=== PATIENT | male | born 1955 | race Caucasian/White ===

== ENCOUNTER 2018-08-29 11:20 | Inpatient (IN) | payer MEDICARE, OTHER ==
[~2018-08-29] VITALS: Ht 172.7 cm; Wt 82.4 kg
[~2018-08-29 11:20] MED LIST: FLUT1DIS4 INH; HYDR-4383 PO; LISI-222 PO; PANT-47 PO; THEO200T22 PO; ZOC40T PO
[2018-08-29] MEDS ORDERED: normal saline 1000ml 1,000 ML IV ONE (11:25)
[2018-08-29 11:42] LABS: HEMATOCRIT 43.6 % (42.0-52.0); HEMOGLOBIN 15.6 g/dl (14.0-17.9); MEAN CORPUSCULAR HEMOGLOBIN 34.4 PG (27.0-31.0); MEAN CORPUSCULAR HGB CONC 35.9 % (33.0-36.5); MEAN PLATELET VOLUME 7.3 FL (7.4-10.4); PLATELET COUNT 289 X10'3 (140-440); RED BLOOD COUNT 4.54 X10'6 (4.70-6.10); RED CELL DISTRIBUTION WIDTH 12.3 % (11.5-14.5)
[2018-08-29] MEDS ORDERED: ALBU18HF2 INH (11:52)
[2018-08-29 11:53] LABS: ALANINE AMINOTRANSFERASE 61 U/L (12-78); ALBUMIN 4.2 G/DL (3.4-5.0); ALBUMIN/GLOBULIN RATIO 1.1 (1.1-1.5); ALKALINE PHOSPHATASE 63 IU/L (46-116); ANION GAP 12 (8-16); ASPARTATE AMINO TRANSFERASE 106 U/L (10-37); BILIRUBIN,TOTAL 1.9 MG/DL (0.1-1.0); BLOOD UREA NITROGEN 15 MG/DL (7-18); BUN/CREATININE RATIO 16.9 (5.4-32.0); CALCIUM 9.2 MG/DL (8.5-10.1); CHLORIDE 63 MMOL/L (99-107); CREATININE 0.89 MG/DL (0.60-1.10); ETHANOL 0.041 GM/DL (0.0-0.010); GLUCOSE 149 MG/DL (70-104); MAGNESIUM 2.3 MG/DL (1.5-2.4); SODIUM 104 MMOL/L (135-145); TOTAL CARBON DIOXIDE 28.9 MMOL/L (24-32); TOTAL PROTEIN 7.9 G/DL (6.4-8.2); eGFR 87 ML/MIN
[2018-08-29] MEDS ORDERED: LOVA20TA2 PO (11:53)
[2018-08-29] MEDS ORDERED: CHLO25TA2 PO (11:53)
[2018-08-29] MEDS ORDERED: LISI-600 PO (11:53)
[2018-08-29 11:54] LABS: PARTIAL THROMBOPLASTIN TIME 26 SECONDS (22-32); PROTHROMBIN TIME 9.8 SECONDS (9.0-12.0)
[2018-08-29] MEDS ORDERED: SIMV40TA PO (11:54)
[2018-08-29] MEDS ORDERED: TIMO5DRO32 (11:55)
[2018-08-29] MEDS ORDERED: TRAM50TA2 PO (11:55)
[2018-08-29] MEDS ORDERED: potassium 10mEq/100ml NS w/LIDOcaine (10mg/bag) IV ONE (12:00)
[2018-08-29 12:15] LABS: TOTAL CELLS COUNTED 100
[2018-08-29 12:16] LABS: PLATELET ESTIMATE NORMAL
[2018-08-29] MEDS ORDERED: LORazepam 2 mg/ml vial IV ONE (12:20)
[2018-08-29] MEDS ORDERED: normal saline 1000ML IV soln IVB ONE (12:30)
[2018-08-29] MEDS ORDERED: iohexol 300mg/ml 100ml inj. ONE (13:09)
[2018-08-29 14:07] LABS: CLARITY,URINE CLEAR (Clear); COLOR,URINE YELLOW (Yellow); GLUCOSE, URINE NEGATIVE (Neg); KETONES,URINE 40 mg/dl (Neg); LEUKOCYTE ESTERASE ,URINE NEGATIVE (Neg); NITRITES, URINE NEGATIVE (Neg); OCCULT BLOOD,URINE TRACE-INTACT (Neg); PH,URINE 6.5 (4.8-8.0); UROBILINOGEN,URINE 0.2 E.U/dL (0.2-1.0)
[2018-08-29 14:14] LABS: PROTEIN,URINE TRACE mg/dl (Neg)
[2018-08-29 14:18] LABS: UA COLLECTION TYPE STRAIGHT CATH
[2018-08-29 14:23] LABS: URINE AMPHETAMINE SCREEN NEGATIVE (Neg); URINE BARBITUATE SCREEN NEGATIVE (Neg); URINE BENZODIAZEPINES SCREEN NEGATIVE (Neg); URINE CANNABINOID SCREEN NEGATIVE (Neg); URINE COCAINE SCREEN NEGATIVE (Neg); URINE METHADONE SCREEN NEGATIVE (Neg); URINE OPIATE SCREEN NEGATIVE (Neg); URINE PHENCYCLIDINE SCREEN NEGATIVE (Neg)
[2018-08-29 14:28] LABS: SQUAMOUS EPITHELIAL CELL,UR FEW /LPF (FEW)
[2018-08-29 14:29] LABS: BACTERIA,URINE FEW /HPF (Neg); FINE GRANULAR CAST 0-3 /LPF (NEGATIVE); RBC,URINE 0-2 /HPF (0-2)
[2018-08-29 14:30] LABS: WBC,URINE 0-4 /HPF (0-4)
[2018-08-29 15:14] LABS: LIPASE 517 U/L (73-393)
[2018-08-29] MEDS: normal saline 1000ml 1,000 ML IV SCH (15:32)
[2018-08-29] MEDS ORDERED: morphine 2 MG/ML inj. syringe IV PRN (15:35)
[2018-08-29] MEDS ORDERED: potassium Cl 40MEQ/NS 500ml 500 ML IV PRN (15:35)
[2018-08-29] MEDS ORDERED: ondansetron/PF 4mg/2ml inj IV PRN (15:35)
[2018-08-29] MEDS ORDERED: acetaminophen 325mg tablet PO PRN ×2 (15:35)
[2018-08-29] MEDS ORDERED: morphine 4 MG/ML inj SYRINge IV PRN (15:35)
[2018-08-29] MEDS ORDERED: TIMO5DRO4 EACHEYE (15:57)
[2018-08-29] MEDS ORDERED: chlordiazePOXIDE 25mg capsule PO PRN (17:30)
[2018-08-29 18:49] LABS: ALBUMIN 3.7 G/DL (3.4-5.0); ANION GAP 10 (8-16); BLOOD UREA NITROGEN 14 MG/DL (7-18); CALCIUM 8.5 MG/DL (8.5-10.1); CHLORIDE 69 MMOL/L (99-107); CREATININE 0.61 MG/DL (0.60-1.10); GLUCOSE 114 MG/DL (70-104); TOTAL CARBON DIOXIDE 27.4 MMOL/L (24-32); eGFR > 90 ML/MIN
[2018-08-29 18:52] LABS: SODIUM 106 MMOL/L (135-145)
[2018-08-29 19:00] VITALS: BP 99/63
[2018-08-29 20:00] VITALS: BP 98/61
[2018-08-29] MEDS: potassium Cl 20 mEq SR tablet PO PRN (20:17)
[2018-08-29] MEDS: folic acid 1mg tablet PO SCH (20:38)
[2018-08-29] MEDS: docusate sod 100mg capsule PO SCH (20:38)
[2018-08-29] MEDS: thiamine 100mg tablet PO SCH (20:39)
[2018-08-29] MEDS: multivitamins, therapeutics tablet PO SCH (20:39)
[2018-08-29] MEDS: heparin, porcine 5000 units/ml vial SQ SCH (20:39)
[2018-08-29 21:00] VITALS: BP 115/68
[2018-08-29 22:00] VITALS: BP 113/48
[2018-08-29 23:00] VITALS: BP 122/68
[2018-08-29 23:37] LABS: ALBUMIN 3.7 G/DL (3.4-5.0); ANION GAP 9 (8-16); CALCIUM 8.8 MG/DL (8.5-10.1); CHLORIDE 71 MMOL/L (99-107); CREATININE 0.66 MG/DL (0.60-1.10); GLUCOSE 112 MG/DL (70-104); TOTAL CARBON DIOXIDE 28.5 MMOL/L (24-32); eGFR > 90 ML/MIN
[2018-08-29 23:46] LABS: BLOOD UREA NITROGEN 12 MG/DL (7-18); BUN/CREATININE RATIO 18.2 (5.4-32.0)
[2018-08-29 23:53] LABS: SODIUM 108 MMOL/L (135-145)
[2018-08-29 23:54] LABS: POTASSIUM 2.8 MMOL/L (3.5-5.1)
[2018-08-30] VITALS (24 sets, daily range): BP systolic 82–127; BP diastolic 57–76
[2018-08-30] MEDS: potassium Cl 40MEQ/NS 500ml 500 ML IV PRN ×2 (01:08→05:32)
[2018-08-30] MEDS: normal saline 1000ml 1,000 ML IV SCH (04:52)
[2018-08-30 05:39] LABS: BASOPHILS % (AUTO) 0.1 % (0-1); EOSINOPHILS # (AUTO) 0.2 X10'3 (0-0.9); EOSINOPHILS % (AUTO) 1.3 % (0-6); HEMATOCRIT 42.1 % (42.0-52.0); LYMPHOCYTES # (AUTO) 1.2 X10'3 (1.1-4.8); LYMPHOCYTES % (AUTO) 8.1 % (21-51); MEAN CORPUSCULAR HEMOGLOBIN 34.3 PG (27.0-31.0); MEAN CORPUSCULAR HGB CONC 35.6 % (33.0-36.5); MEAN CORPUSCULAR VOLUME 96.2 FL (78-98); MEAN PLATELET VOLUME 7.5 FL (7.4-10.4); MONOCYTES # (AUTO) 1.7 X10'3 (0-0.9); MONOCYTES % (AUTO) 11.6 % (2-12); NEUTROPHILS # (AUTO) 11.7 X10'3 (1.8-7.7); NEUTROPHILS % (AUTO) 78.9 % (42-75); PLATELET COUNT 230 X10'3 (140-440); RED BLOOD COUNT 4.37 X10'6 (4.70-6.10); WHITE BLOOD COUNT 14.8 X10'3 (4.5-11.0)
[2018-08-30 06:13] LABS: ALANINE AMINOTRANSFERASE 93 U/L (12-78); ALBUMIN 3.5 G/DL (3.4-5.0); ALBUMIN/GLOBULIN RATIO 1.1 (1.1-1.5); ALKALINE PHOSPHATASE 48 IU/L (46-116); ANION GAP 9 (8-16); ASPARTATE AMINO TRANSFERASE 117 U/L (10-37); BILIRUBIN,TOTAL 1.3 MG/DL (0.1-1.0); BLOOD UREA NITROGEN 9 MG/DL (7-18); CALCIUM 8.6 MG/DL (8.5-10.1); CHLORIDE 76 MMOL/L (99-107); GLUCOSE 107 MG/DL (70-104); MAGNESIUM 2.3 MG/DL (1.5-2.4); PHOSPHORUS 1.9 MG/DL (2.3-4.5); TOTAL CARBON DIOXIDE 27.7 MMOL/L (24-32); TOTAL PROTEIN 6.7 G/DL (6.4-8.2); eGFR > 90 ML/MIN
[2018-08-30 06:38] LABS: POTASSIUM 2.9 MMOL/L (3.5-5.1)
[2018-08-30 06:39] LABS: SODIUM 113 MMOL/L (135-145)
[2018-08-30] MEDS: sodium chloride 0.45% 1,000 ML IV SCH ×2 (07:35→20:50)
[2018-08-30] MEDS: docusate sod 100mg capsule PO SCH ×2 (08:00→20:00)
[2018-08-30] MEDS: heparin, porcine 5000 units/ml vial SQ SCH ×2 (09:09→20:32)
[2018-08-30] MEDS: multivitamins, therapeutics tablet PO SCH (09:09)
[2018-08-30] MEDS: potassium Cl 20 mEq SR tablet PO PRN (09:10)
[2018-08-30] MEDS: folic acid 1mg tablet PO SCH (09:10)
[2018-08-30] MEDS: thiamine 100mg tablet PO SCH (09:10)
[2018-08-30 10:42] LABS: ALBUMIN 3.5 G/DL (3.4-5.0); ANION GAP 6 (8-16); BLOOD UREA NITROGEN 8 MG/DL (7-18); BUN/CREATININE RATIO 13.1 (5.4-32.0); CALCIUM 8.5 MG/DL (8.5-10.1); CHLORIDE 81 MMOL/L (99-107); CREATININE 0.61 MG/DL (0.60-1.10); GLUCOSE 133 MG/DL (70-104); TOTAL CARBON DIOXIDE 28.7 MMOL/L (24-32); eGFR > 90 ML/MIN
[2018-08-30 10:49] LABS: SODIUM 116 MMOL/L (135-145)
[2018-08-30 10:50] LABS: POTASSIUM 3.6 MMOL/L (3.5-5.1)
[2018-08-30 11:00] LABS: OSMOLALITY UA 232 MOSM/K (50-1400)
[2018-08-30 11:04] LABS: SODIUM,URINE RANDOM 50 MEQ/L
[2018-08-30 16:12] LABS: ALBUMIN 3.5 G/DL (3.4-5.0); ANION GAP 6 (8-16); BLOOD UREA NITROGEN 7 MG/DL (7-18); BUN/CREATININE RATIO 10.4 (5.4-32.0); CALCIUM 8.8 MG/DL (8.5-10.1); CHLORIDE 83 MMOL/L (99-107); CREATININE 0.67 MG/DL (0.60-1.10); GLUCOSE 112 MG/DL (70-104); TOTAL CARBON DIOXIDE 29.7 MMOL/L (24-32); eGFR > 90 ML/MIN
[2018-08-30 16:18] LABS: POTASSIUM 3.5 MMOL/L (3.5-5.1)
[2018-08-30 16:21] LABS: SODIUM 119 MMOL/L (135-145)
[2018-08-30] MEDS: diatr meglu/diatrizoate 30ml oral sol.-(3 dose) bottle PO SCH (20:33)
[2018-08-30 23:20] LABS: ALBUMIN 3.5 G/DL (3.4-5.0); ANION GAP 9 (8-16); BLOOD UREA NITROGEN 11 MG/DL (7-18); BUN/CREATININE RATIO 16.2 (5.4-32.0); CALCIUM 8.7 MG/DL (8.5-10.1); CHLORIDE 83 MMOL/L (99-107); CREATININE 0.68 MG/DL (0.60-1.10); GLUCOSE 121 MG/DL (70-104); TOTAL CARBON DIOXIDE 27.5 MMOL/L (24-32); eGFR > 90 ML/MIN
[2018-08-30 23:30] LABS: POTASSIUM 3.1 MMOL/L (3.5-5.1); SODIUM 119 MMOL/L (135-145)
[2018-08-31] VITALS (13 sets, daily range): BP systolic 117–155; BP diastolic 68–96
[2018-08-31] MEDS: potassium Cl 20 mEq SR tablet PO PRN ×3 (00:37→09:13)
[2018-08-31 04:37] LABS: BASOPHILS % (AUTO) 0.3 % (0-1); EOSINOPHILS # (AUTO) 0.1 X10'3 (0-0.9); EOSINOPHILS % (AUTO) 0.8 % (0-6); HEMATOCRIT 42.4 % (42.0-52.0); HEMOGLOBIN 14.8 g/dl (14.0-17.9); LYMPHOCYTES # (AUTO) 1.7 X10'3 (1.1-4.8); LYMPHOCYTES % (AUTO) 11.6 % (21-51); MEAN CORPUSCULAR HEMOGLOBIN 34.3 PG (27.0-31.0); MEAN CORPUSCULAR HGB CONC 34.9 % (33.0-36.5); MEAN CORPUSCULAR VOLUME 98.2 FL (78-98); MEAN PLATELET VOLUME 7.6 FL (7.4-10.4); MONOCYTES # (AUTO) 1.9 X10'3 (0-0.9); MONOCYTES % (AUTO) 12.8 % (2-12); NEUTROPHILS # (AUTO) 10.8 X10'3 (1.8-7.7); NEUTROPHILS % (AUTO) 74.5 % (42-75); PLATELET COUNT 232 X10'3 (140-440); RED BLOOD COUNT 4.32 X10'6 (4.70-6.10); RED CELL DISTRIBUTION WIDTH 12.8 % (11.5-14.5); WHITE BLOOD COUNT 14.5 X10'3 (4.5-11.0)
[2018-08-31 04:51] LABS: ALANINE AMINOTRANSFERASE 83 U/L (12-78); ALBUMIN 3.5 G/DL (3.4-5.0); ALBUMIN/GLOBULIN RATIO 1.1 (1.1-1.5); ALKALINE PHOSPHATASE 56 IU/L (46-116); ANION GAP 8 (8-16); ASPARTATE AMINO TRANSFERASE 67 U/L (10-37); BILIRUBIN,TOTAL 0.7 MG/DL (0.1-1.0); BLOOD UREA NITROGEN 9 MG/DL (7-18); BUN/CREATININE RATIO 14.3 (5.4-32.0); CALCIUM 8.7 MG/DL (8.5-10.1); CHLORIDE 84 MMOL/L (99-107); CREATININE 0.63 MG/DL (0.60-1.10); GLUCOSE 111 MG/DL (70-104); MAGNESIUM 2.4 MG/DL (1.5-2.4); PHOSPHORUS 1.6 MG/DL (2.3-4.5); TOTAL CARBON DIOXIDE 28.3 MMOL/L (24-32); TOTAL PROTEIN 6.8 G/DL (6.4-8.2); eGFR > 90 ML/MIN
[2018-08-31 04:52] LABS: POTASSIUM 2.9 MMOL/L (3.5-5.1); SODIUM 120 MMOL/L (135-145)
[2018-08-31] MEDS: diatr meglu/diatrizoate 30ml oral sol.-(3 dose) bottle PO SCH ×2 (07:31→10:15)
[2018-08-31] MEDS ORDERED: iohexol 300mg/ml 100ml inj. ONE (11:04)
[2018-08-31] MEDS: thiamine 100mg tablet PO SCH (11:59)
[2018-08-31] MEDS: folic acid 1mg tablet PO SCH (12:00)
[2018-08-31] MEDS: multivitamins, therapeutics tablet PO SCH (12:00)
[2018-08-31] MEDS: docusate sod 100mg capsule PO SCH ×2 (12:00→19:51)
[2018-08-31] MEDS: heparin, porcine 5000 units/ml vial SQ SCH ×2 (12:02→19:52)
[2018-08-31 16:14] LABS: ALBUMIN 3.5 G/DL (3.4-5.0); ANION GAP 6 (8-16); BLOOD UREA NITROGEN 9 MG/DL (7-18); BUN/CREATININE RATIO 9.8 (5.4-32.0); CALCIUM 9.1 MG/DL (8.5-10.1); CHLORIDE 87 MMOL/L (99-107); CREATININE 0.92 MG/DL (0.60-1.10); GLUCOSE 135 MG/DL (70-104); POTASSIUM 3.7 MMOL/L (3.5-5.1); SODIUM 122 MMOL/L (135-145); TOTAL CARBON DIOXIDE 28.8 MMOL/L (24-32); eGFR 84 ML/MIN
[2018-08-31 22:14] LABS: ALBUMIN 3.5 G/DL (3.4-5.0); ANION GAP 9 (8-16); BLOOD UREA NITROGEN 14 MG/DL (7-18); BUN/CREATININE RATIO 19.7 (5.4-32.0); CALCIUM 9.2 MG/DL (8.5-10.1); CHLORIDE 87 MMOL/L (99-107); CREATININE 0.71 MG/DL (0.60-1.10); GLUCOSE 127 MG/DL (70-104); POTASSIUM 3.4 MMOL/L (3.5-5.1); SODIUM 123 MMOL/L (135-145); TOTAL CARBON DIOXIDE 27.5 MMOL/L (24-32); eGFR > 90 ML/MIN
[2018-09-01] MEDS: potassium Cl 20 mEq SR tablet PO PRN (00:46)
[2018-09-01 03:00] VITALS: BP 153/93
[2018-09-01 06:14] LABS: ALANINE AMINOTRANSFERASE 76 U/L (12-78); ALBUMIN 3.6 G/DL (3.4-5.0); ALKALINE PHOSPHATASE 52 IU/L (46-116); ANION GAP 6 (8-16); ASPARTATE AMINO TRANSFERASE 46 U/L (10-37); BILIRUBIN,TOTAL 0.6 MG/DL (0.1-1.0); BLOOD UREA NITROGEN 15 MG/DL (7-18); BUN/CREATININE RATIO 19.2 (5.4-32.0); CALCIUM 9.3 MG/DL (8.5-10.1); CHLORIDE 89 MMOL/L (99-107); CREATININE 0.78 MG/DL (0.60-1.10); GLUCOSE 124 MG/DL (70-104); MAGNESIUM 2.3 MG/DL (1.5-2.4); PHOSPHORUS 2.1 MG/DL (2.3-4.5); POTASSIUM 3.7 MMOL/L (3.5-5.1); SODIUM 124 MMOL/L (135-145); TOTAL CARBON DIOXIDE 28.9 MMOL/L (24-32); TOTAL PROTEIN 7.1 G/DL (6.4-8.2); eGFR > 90 ML/MIN
[2018-09-01 06:19] LABS: BASOPHILS % (AUTO) 0.3 % (0-1); EOSINOPHILS # (AUTO) 0.2 X10'3 (0-0.9); EOSINOPHILS % (AUTO) 1.7 % (0-6); HEMATOCRIT 44.8 % (42.0-52.0); HEMOGLOBIN 15.7 g/dl (14.0-17.9); LYMPHOCYTES # (AUTO) 2.3 X10'3 (1.1-4.8); LYMPHOCYTES % (AUTO) 16.6 % (21-51); MEAN CORPUSCULAR HEMOGLOBIN 34.2 PG (27.0-31.0); MEAN CORPUSCULAR HGB CONC 34.9 % (33.0-36.5); MEAN PLATELET VOLUME 7.2 FL (7.4-10.4); MONOCYTES # (AUTO) 1.8 X10'3 (0-0.9); MONOCYTES % (AUTO) 12.6 % (2-12); NEUTROPHILS # (AUTO) 9.7 X10'3 (1.8-7.7); NEUTROPHILS % (AUTO) 68.8 % (42-75); PLATELET COUNT 255 X10'3 (140-440); RED BLOOD COUNT 4.57 X10'6 (4.70-6.10); RED CELL DISTRIBUTION WIDTH 13.1 % (11.5-14.5); WHITE BLOOD COUNT 14.1 X10'3 (4.5-11.0)
[2018-09-01 06:46] VITALS: BP 137/89
[2018-09-01] MEDS: docusate sod 100mg capsule PO SCH ×2 (07:10→19:05)
[2018-09-01] MEDS: folic acid 1mg tablet PO SCH (07:10)
[2018-09-01] MEDS: thiamine 100mg tablet PO SCH (07:10)
[2018-09-01] MEDS: multivitamins, therapeutics tablet PO SCH (07:10)
[2018-09-01] MEDS: heparin, porcine 5000 units/ml vial SQ SCH ×2 (07:11→19:05)
[2018-09-01 10:34] LABS: ALBUMIN 3.5 G/DL (3.4-5.0); ANION GAP 9 (8-16); BLOOD UREA NITROGEN 16 MG/DL (7-18); BUN/CREATININE RATIO 21.9 (5.4-32.0); CALCIUM 9.2 MG/DL (8.5-10.1); CHLORIDE 88 MMOL/L (99-107); CREATININE 0.73 MG/DL (0.60-1.10); GLUCOSE 154 MG/DL (70-104); POTASSIUM 3.5 MMOL/L (3.5-5.1); SODIUM 124 MMOL/L (135-145); TOTAL CARBON DIOXIDE 27.4 MMOL/L (24-32); eGFR > 90 ML/MIN
[2018-09-01 11:33] VITALS: BP 113/73
[2018-09-01 15:00] VITALS: BP 132/78
[2018-09-01 16:42] LABS: ALBUMIN 3.8 G/DL (3.4-5.0); ANION GAP 5 (8-16); BLOOD UREA NITROGEN 19 MG/DL (7-18); BUN/CREATININE RATIO 23.5 (5.4-32.0); CALCIUM 9.3 MG/DL (8.5-10.1); CHLORIDE 89 MMOL/L (99-107); CREATININE 0.81 MG/DL (0.60-1.10); GLUCOSE 131 MG/DL (70-104); POTASSIUM 3.4 MMOL/L (3.5-5.1); SODIUM 125 MMOL/L (135-145); TOTAL CARBON DIOXIDE 31.2 MMOL/L (24-32); eGFR > 90 ML/MIN
[2018-09-01 18:30] VITALS: BP 138/74
[2018-09-01 22:30] VITALS: BP 140/80
[2018-09-02 02:30] VITALS: BP 124/77
[2018-09-02 06:00] VITALS: BP 134/92
[2018-09-02 06:30] LABS: BASOPHILS # (AUTO) 0.1 X10'3 (0-0.2); BASOPHILS % (AUTO) 0.6 % (0-1); EOSINOPHILS # (AUTO) 0.4 X10'3 (0-0.9); EOSINOPHILS % (AUTO) 3.2 % (0-6); HEMATOCRIT 41.9 % (42.0-52.0); HEMOGLOBIN 14.4 g/dl (14.0-17.9); LYMPHOCYTES % (AUTO) 16.1 % (21-51); MEAN CORPUSCULAR HEMOGLOBIN 33.7 PG (27.0-31.0); MEAN CORPUSCULAR HGB CONC 34.4 % (33.0-36.5); MEAN CORPUSCULAR VOLUME 97.9 FL (78-98); MEAN PLATELET VOLUME 7.3 FL (7.4-10.4); MONOCYTES # (AUTO) 1.3 X10'3 (0-0.9); MONOCYTES % (AUTO) 10.5 % (2-12); NEUTROPHILS # (AUTO) 8.5 X10'3 (1.8-7.7); NEUTROPHILS % (AUTO) 69.6 % (42-75); PLATELET COUNT 282 X10'3 (140-440); RED BLOOD COUNT 4.28 X10'6 (4.70-6.10); RED CELL DISTRIBUTION WIDTH 13.4 % (11.5-14.5); WHITE BLOOD COUNT 12.2 X10'3 (4.5-11.0)
[2018-09-02 06:42] LABS: ALANINE AMINOTRANSFERASE 59 U/L (12-78); ALBUMIN 3.3 G/DL (3.4-5.0); ALKALINE PHOSPHATASE 49 IU/L (46-116); ANION GAP 7 (8-16); ASPARTATE AMINO TRANSFERASE 32 U/L (10-37); BILIRUBIN,TOTAL 0.5 MG/DL (0.1-1.0); BLOOD UREA NITROGEN 18 MG/DL (7-18); BUN/CREATININE RATIO 27.3 (5.4-32.0); CALCIUM 8.9 MG/DL (8.5-10.1); CHLORIDE 91 MMOL/L (99-107); CREATININE 0.66 MG/DL (0.60-1.10); GLUCOSE 121 MG/DL (70-104); MAGNESIUM 2.2 MG/DL (1.5-2.4); PHOSPHORUS 2.7 MG/DL (2.3-4.5); POTASSIUM 3.5 MMOL/L (3.5-5.1); SODIUM 126 MMOL/L (135-145); TOTAL CARBON DIOXIDE 28.5 MMOL/L (24-32); TOTAL PROTEIN 6.7 G/DL (6.4-8.2); eGFR > 90 ML/MIN
[2018-09-02] MEDS: docusate sod 100mg capsule PO SCH ×2 (07:43→20:03)
[2018-09-02] MEDS: multivitamins, therapeutics tablet PO SCH (07:43)
[2018-09-02] MEDS: folic acid 1mg tablet PO SCH (07:43)
[2018-09-02] MEDS: heparin, porcine 5000 units/ml vial SQ SCH ×2 (07:43→20:04)
[2018-09-02] MEDS: thiamine 100mg tablet PO SCH (07:43)
[2018-09-02 11:45] VITALS: BP 138/79
[2018-09-02] MEDS ORDERED: QUEtiapine 25mg tablet PO PRN (12:55)
[2018-09-02 15:00] VITALS: BP 128/79
[2018-09-02 15:41] LABS: ALBUMIN 3.3 G/DL (3.4-5.0); ANION GAP 6 (8-16); BLOOD UREA NITROGEN 18 MG/DL (7-18); BUN/CREATININE RATIO 23.1 (5.4-32.0); CALCIUM 9.1 MG/DL (8.5-10.1); CHLORIDE 89 MMOL/L (99-107); CREATININE 0.78 MG/DL (0.60-1.10); GLUCOSE 115 MG/DL (70-104); POTASSIUM 3.1 MMOL/L (3.5-5.1); SODIUM 127 MMOL/L (135-145); eGFR > 90 ML/MIN
[2018-09-02] MEDS: potassium Cl 20 mEq SR tablet PO PRN ×3 (16:15→23:55)
[2018-09-02 18:00] VITALS: BP 147/69
[2018-09-02 22:00] VITALS: BP 137/80
[2018-09-03 02:23] VITALS: BP 111/80
[2018-09-03 06:13] LABS: BASOPHILS # (AUTO) 0.1 X10'3 (0-0.2); BASOPHILS % (AUTO) 0.7 % (0-1); EOSINOPHILS # (AUTO) 0.4 X10'3 (0-0.9); EOSINOPHILS % (AUTO) 3.6 % (0-6); HEMATOCRIT 42.1 % (42.0-52.0); HEMOGLOBIN 14.3 g/dl (14.0-17.9); LYMPHOCYTES # (AUTO) 2.1 X10'3 (1.1-4.8); MEAN CORPUSCULAR HEMOGLOBIN 33.7 PG (27.0-31.0); MEAN CORPUSCULAR HGB CONC 33.9 % (33.0-36.5); MEAN CORPUSCULAR VOLUME 99.4 FL (78-98); MEAN PLATELET VOLUME 7.3 FL (7.4-10.4); MONOCYTES # (AUTO) 1.3 X10'3 (0-0.9); MONOCYTES % (AUTO) 12.1 % (2-12); NEUTROPHILS # (AUTO) 7.2 X10'3 (1.8-7.7); NEUTROPHILS % (AUTO) 64.6 % (42-75); PLATELET COUNT 271 X10'3 (140-440); RED BLOOD COUNT 4.24 X10'6 (4.70-6.10); WHITE BLOOD COUNT 11.2 X10'3 (4.5-11.0)
[2018-09-03 06:34] LABS: ALANINE AMINOTRANSFERASE 54 U/L (12-78); ALBUMIN 3.3 G/DL (3.4-5.0); ALBUMIN/GLOBULIN RATIO 0.9 (1.1-1.5); ALKALINE PHOSPHATASE 48 IU/L (46-116); ANION GAP 6 (8-16); ASPARTATE AMINO TRANSFERASE 28 U/L (10-37); BILIRUBIN,TOTAL 0.4 MG/DL (0.1-1.0); BLOOD UREA NITROGEN 17 MG/DL (7-18); BUN/CREATININE RATIO 24.3 (5.4-32.0); CALCIUM 8.9 MG/DL (8.5-10.1); CHLORIDE 93 MMOL/L (99-107); GLUCOSE 118 MG/DL (70-104); MAGNESIUM 2.1 MG/DL (1.5-2.4); PHOSPHORUS 3.3 MG/DL (2.3-4.5); POTASSIUM 3.9 MMOL/L (3.5-5.1); SODIUM 128 MMOL/L (135-145); TOTAL CARBON DIOXIDE 28.6 MMOL/L (24-32); TOTAL PROTEIN 6.8 G/DL (6.4-8.2); eGFR > 90 ML/MIN
[2018-09-03 07:00] VITALS: BP 118/72
[2018-09-03] MEDS: thiamine 100mg tablet PO SCH (08:22)
[2018-09-03] MEDS: docusate sod 100mg capsule PO SCH ×2 (08:22→19:32)
[2018-09-03] MEDS: folic acid 1mg tablet PO SCH (08:23)
[2018-09-03] MEDS: heparin, porcine 5000 units/ml vial SQ SCH ×2 (08:23→19:32)
[2018-09-03] MEDS: multivitamins, therapeutics tablet PO SCH (08:23)
[2018-09-03 12:18] VITALS: BP 127/82
[2018-09-03 15:02] LABS: ALBUMIN 3.2 G/DL (3.4-5.0); ANION GAP 6 (8-16); BLOOD UREA NITROGEN 16 MG/DL (7-18); BUN/CREATININE RATIO 21.6 (5.4-32.0); CALCIUM 8.8 MG/DL (8.5-10.1); CHLORIDE 93 MMOL/L (99-107); CREATININE 0.74 MG/DL (0.60-1.10); GLUCOSE 152 MG/DL (70-104); SODIUM 129 MMOL/L (135-145); TOTAL CARBON DIOXIDE 30.1 MMOL/L (24-32); eGFR > 90 ML/MIN
[2018-09-03] MEDS ORDERED: morphine 4 MG/ML inj SYRINge IV PRN (15:50)
[2018-09-03 18:00] VITALS: BP 140/79
[2018-09-03 22:00] VITALS: BP 113/77
[2018-09-04 02:00] VITALS: BP 134/82
[2018-09-04 06:00] VITALS: BP 137/78
[2018-09-04 06:48] LABS: BASOPHILS % (AUTO) 0.4 % (0-1); EOSINOPHILS # (AUTO) 0.4 X10'3 (0-0.9); EOSINOPHILS % (AUTO) 3.5 % (0-6); HEMATOCRIT 42.4 % (42.0-52.0); HEMOGLOBIN 14.4 g/dl (14.0-17.9); LYMPHOCYTES # (AUTO) 2.1 X10'3 (1.1-4.8); LYMPHOCYTES % (AUTO) 19.1 % (21-51); MEAN CORPUSCULAR VOLUME 99.7 FL (78-98); MEAN PLATELET VOLUME 6.9 FL (7.4-10.4); MONOCYTES # (AUTO) 1.2 X10'3 (0-0.9); MONOCYTES % (AUTO) 11.1 % (2-12); NEUTROPHILS # (AUTO) 7.4 X10'3 (1.8-7.7); NEUTROPHILS % (AUTO) 65.9 % (42-75); PLATELET COUNT 283 X10'3 (140-440); RED BLOOD COUNT 4.25 X10'6 (4.70-6.10); RED CELL DISTRIBUTION WIDTH 13.1 % (11.5-14.5); WHITE BLOOD COUNT 11.2 X10'3 (4.5-11.0)
[2018-09-04] MEDS: docusate sod 100mg capsule PO SCH ×2 (07:06→19:51)
[2018-09-04] MEDS: multivitamins, therapeutics tablet PO SCH (07:06)
[2018-09-04] MEDS: folic acid 1mg tablet PO SCH (07:06)
[2018-09-04] MEDS: thiamine 100mg tablet PO SCH (07:06)
[2018-09-04] MEDS: heparin, porcine 5000 units/ml vial SQ SCH ×2 (07:06→19:50)
[2018-09-04 07:29] LABS: ALANINE AMINOTRANSFERASE 49 U/L (12-78); ALBUMIN 3.3 G/DL (3.4-5.0); ALBUMIN/GLOBULIN RATIO 0.9 (1.1-1.5); ALKALINE PHOSPHATASE 49 IU/L (46-116); ANION GAP 7 (8-16); ASPARTATE AMINO TRANSFERASE 23 U/L (10-37); BILIRUBIN,TOTAL 0.4 MG/DL (0.1-1.0); BLOOD UREA NITROGEN 15 MG/DL (7-18); BUN/CREATININE RATIO 19.2 (5.4-32.0); CHLORIDE 95 MMOL/L (99-107); CREATININE 0.78 MG/DL (0.60-1.10); GLUCOSE 113 MG/DL (70-104); MAGNESIUM 2.3 MG/DL (1.5-2.4); PHOSPHORUS 3.6 MG/DL (2.3-4.5); POTASSIUM 3.7 MMOL/L (3.5-5.1); SODIUM 130 MMOL/L (135-145); TOTAL CARBON DIOXIDE 27.7 MMOL/L (24-32); TOTAL PROTEIN 6.8 G/DL (6.4-8.2); eGFR > 90 ML/MIN
[2018-09-04 11:00] VITALS: BP 126/74
[2018-09-04 14:51] LABS: ANION GAP 5 (8-16); BLOOD UREA NITROGEN 14 MG/DL (7-18); BUN/CREATININE RATIO 19.4 (5.4-32.0); CALCIUM 9.1 MG/DL (8.5-10.1); CHLORIDE 94 MMOL/L (99-107); CREATININE 0.72 MG/DL (0.60-1.10); GLUCOSE 110 MG/DL (70-104); SODIUM 131 MMOL/L (135-145); TOTAL CARBON DIOXIDE 31.7 MMOL/L (24-32); eGFR > 90 ML/MIN
[2018-09-04 14:53] LABS: POTASSIUM 4.3 MMOL/L (3.5-5.1)
[2018-09-04 15:00] VITALS: BP 128/82
[2018-09-04 19:00] VITALS: BP 113/72
[2018-09-04 23:00] VITALS: BP 135/81
[2018-09-05 03:00] VITALS: BP 123/87
[2018-09-05 05:25] LABS: BASOPHILS # (AUTO) 0.1 X10'3 (0-0.2); BASOPHILS % (AUTO) 0.4 % (0-1); EOSINOPHILS # (AUTO) 0.3 X10'3 (0-0.9); EOSINOPHILS % (AUTO) 2.7 % (0-6); HEMATOCRIT 38.1 % (42.0-52.0); HEMOGLOBIN 13.1 g/dl (14.0-17.9); LYMPHOCYTES # (AUTO) 1.5 X10'3 (1.1-4.8); LYMPHOCYTES % (AUTO) 11.7 % (21-51); MEAN CORPUSCULAR HGB CONC 34.4 % (33.0-36.5); MEAN CORPUSCULAR VOLUME 98.8 FL (78-98); MEAN PLATELET VOLUME 6.8 FL (7.4-10.4); MONOCYTES # (AUTO) 1.2 X10'3 (0-0.9); MONOCYTES % (AUTO) 9.2 % (2-12); NEUTROPHILS # (AUTO) 9.8 X10'3 (1.8-7.7); PLATELET COUNT 305 X10'3 (140-440); RED BLOOD COUNT 3.86 X10'6 (4.70-6.10); RED CELL DISTRIBUTION WIDTH 13.4 % (11.5-14.5); WHITE BLOOD COUNT 12.9 X10'3 (4.5-11.0)
[2018-09-05 05:40] LABS: ALANINE AMINOTRANSFERASE 45 U/L (12-78); ALBUMIN/GLOBULIN RATIO 0.9 (1.1-1.5); ALKALINE PHOSPHATASE 46 IU/L (46-116); ANION GAP 8 (8-16); ASPARTATE AMINO TRANSFERASE 22 U/L (10-37); BILIRUBIN,TOTAL 0.3 MG/DL (0.1-1.0); BLOOD UREA NITROGEN 15 MG/DL (7-18); BUN/CREATININE RATIO 19.7 (5.4-32.0); CALCIUM 8.6 MG/DL (8.5-10.1); CHLORIDE 96 MMOL/L (99-107); CREATININE 0.76 MG/DL (0.60-1.10); GLUCOSE 148 MG/DL (70-104); MAGNESIUM 2.3 MG/DL (1.5-2.4); PHOSPHORUS 3.1 MG/DL (2.3-4.5); POTASSIUM 3.4 MMOL/L (3.5-5.1); SODIUM 132 MMOL/L (135-145); TOTAL CARBON DIOXIDE 28.3 MMOL/L (24-32); TOTAL PROTEIN 6.3 G/DL (6.4-8.2); eGFR > 90 ML/MIN
[2018-09-05 06:00] VITALS: BP 110/90
[2018-09-05] MEDS: folic acid 1mg tablet PO SCH (08:11)
[2018-09-05] MEDS: potassium Cl 20 mEq SR tablet PO PRN ×3 (08:11→17:54)
[2018-09-05] MEDS: heparin, porcine 5000 units/ml vial SQ SCH ×2 (08:11→20:31)
[2018-09-05] MEDS: docusate sod 100mg capsule PO SCH ×2 (08:11→20:32)
[2018-09-05] MEDS: thiamine 100mg tablet PO SCH (08:11)
[2018-09-05] MEDS: multivitamins, therapeutics tablet PO SCH (08:11)
[2018-09-05 11:00] VITALS: BP 127/82
[2018-09-05 15:00] VITALS: BP 112/68
[2018-09-05 19:00] VITALS: BP 144/78
[2018-09-05 23:00] VITALS: BP 143/88
[2018-09-06 03:00] VITALS: BP 125/77
[2018-09-06 05:47] LABS: BASOPHILS % (AUTO) 0.3 % (0-1); EOSINOPHILS # (AUTO) 0.2 X10'3 (0-0.9); EOSINOPHILS % (AUTO) 1.7 % (0-6); HEMATOCRIT 38.4 % (42.0-52.0); HEMOGLOBIN 13.1 g/dl (14.0-17.9); LYMPHOCYTES # (AUTO) 1.1 X10'3 (1.1-4.8); LYMPHOCYTES % (AUTO) 8.1 % (21-51); MEAN CORPUSCULAR HEMOGLOBIN 34.1 PG (27.0-31.0); MEAN CORPUSCULAR HGB CONC 34.1 % (33.0-36.5); MEAN PLATELET VOLUME 6.8 FL (7.4-10.4); MONOCYTES % (AUTO) 6.7 % (2-12); NEUTROPHILS # (AUTO) 11.8 X10'3 (1.8-7.7); NEUTROPHILS % (AUTO) 83.2 % (42-75); PLATELET COUNT 288 X10'3 (140-440); RED BLOOD COUNT 3.84 X10'6 (4.70-6.10); RED CELL DISTRIBUTION WIDTH 13.7 % (11.5-14.5); WHITE BLOOD COUNT 14.1 X10'3 (4.5-11.0)
[2018-09-06 06:00] VITALS: BP 143/81
[2018-09-06 06:09] LABS: ALANINE AMINOTRANSFERASE 47 U/L (12-78); ALBUMIN 2.9 G/DL (3.4-5.0); ALBUMIN/GLOBULIN RATIO 0.8 (1.1-1.5); ALKALINE PHOSPHATASE 50 IU/L (46-116); ANION GAP 6 (8-16); ASPARTATE AMINO TRANSFERASE 23 U/L (10-37); BILIRUBIN,TOTAL 0.3 MG/DL (0.1-1.0); BLOOD UREA NITROGEN 15 MG/DL (7-18); BUN/CREATININE RATIO 21.4 (5.4-32.0); CALCIUM 8.9 MG/DL (8.5-10.1); CHLORIDE 99 MMOL/L (99-107); GLUCOSE 136 MG/DL (70-104); MAGNESIUM 2.2 MG/DL (1.5-2.4); PHOSPHORUS 3.1 MG/DL (2.3-4.5); POTASSIUM 4.4 MMOL/L (3.5-5.1); SODIUM 133 MMOL/L (135-145); TOTAL PROTEIN 6.5 G/DL (6.4-8.2); eGFR > 90 ML/MIN
[2018-09-06] MEDS: thiamine 100mg tablet PO SCH (07:59)
[2018-09-06] MEDS: docusate sod 100mg capsule PO SCH ×2 (07:59→20:49)
[2018-09-06] MEDS: folic acid 1mg tablet PO SCH (08:00)
[2018-09-06] MEDS: heparin, porcine 5000 units/ml vial SQ SCH ×2 (08:00→20:50)
[2018-09-06] MEDS: multivitamins, therapeutics tablet PO SCH (08:00)
[2018-09-06 11:00] VITALS: BP 128/77
[2018-09-06 15:00] VITALS: BP 105/63
[2018-09-06 18:00] VITALS: BP 126/72
[2018-09-06 22:00] VITALS: BP 128/74
[2018-09-07 02:00] VITALS: BP 117/75
[2018-09-07 05:40] LABS: BASOPHILS # (AUTO) 0.2 X10'3 (0-0.2); BASOPHILS % (AUTO) 1.4 % (0-1); EOSINOPHILS # (AUTO) 0.1 X10'3 (0-0.9); EOSINOPHILS % (AUTO) 0.5 % (0-6); HEMATOCRIT 38.2 % (42.0-52.0); HEMOGLOBIN 13.1 g/dl (14.0-17.9); LYMPHOCYTES # (AUTO) 1.3 X10'3 (1.1-4.8); LYMPHOCYTES % (AUTO) 7.9 % (21-51); MEAN CORPUSCULAR HGB CONC 34.3 % (33.0-36.5); MEAN CORPUSCULAR VOLUME 99.2 FL (78-98); MEAN PLATELET VOLUME 6.9 FL (7.4-10.4); MONOCYTES # (AUTO) 0.9 X10'3 (0-0.9); MONOCYTES % (AUTO) 5.6 % (2-12); NEUTROPHILS # (AUTO) 14.3 X10'3 (1.8-7.7); NEUTROPHILS % (AUTO) 84.6 % (42-75); PLATELET COUNT 250 X10'3 (140-440); RED BLOOD COUNT 3.85 X10'6 (4.70-6.10); RED CELL DISTRIBUTION WIDTH 13.6 % (11.5-14.5); WHITE BLOOD COUNT 16.9 X10'3 (4.5-11.0)
[2018-09-07 06:38] VITALS: BP 114/79
[2018-09-07 06:41] LABS: ALANINE AMINOTRANSFERASE 39 U/L (12-78); ALBUMIN 2.9 G/DL (3.4-5.0); ALBUMIN/GLOBULIN RATIO 0.7 (1.1-1.5); ALKALINE PHOSPHATASE 64 IU/L (46-116); ANION GAP 10 (8-16); ASPARTATE AMINO TRANSFERASE 23 U/L (10-37); BILIRUBIN,TOTAL 0.4 MG/DL (0.1-1.0); BLOOD UREA NITROGEN 10 MG/DL (7-18); BUN/CREATININE RATIO 15.9 (5.4-32.0); CALCIUM 9.5 MG/DL (8.5-10.1); CHLORIDE 98 MMOL/L (99-107); CREATININE 0.63 MG/DL (0.60-1.10); GLUCOSE 116 MG/DL (70-104); MAGNESIUM 2.3 MG/DL (1.5-2.4); PHOSPHORUS 4.3 MG/DL (2.3-4.5); POTASSIUM 4.4 MMOL/L (3.5-5.1); SODIUM 134 MMOL/L (135-145); TOTAL CARBON DIOXIDE 25.7 MMOL/L (24-32); TOTAL PROTEIN 6.8 G/DL (6.4-8.2); eGFR > 90 ML/MIN
[2018-09-07] MEDS: docusate sod 100mg capsule PO SCH ×2 (07:20→20:11)
[2018-09-07] MEDS: thiamine 100mg tablet PO SCH (07:20)
[2018-09-07] MEDS: folic acid 1mg tablet PO SCH (07:21)
[2018-09-07] MEDS: multivitamins, therapeutics tablet PO SCH (07:21)
[2018-09-07] MEDS: heparin, porcine 5000 units/ml vial SQ SCH ×2 (07:22→20:11)
[2018-09-07 11:00] VITALS: BP 144/89
[2018-09-07 15:00] VITALS: BP 146/93
[2018-09-07 18:00] VITALS: BP 141/80
[2018-09-07 22:00] VITALS: BP 133/85
[2018-09-08 02:00] VITALS: BP 132/80
[2018-09-08 06:42] LABS: BASOPHILS % (AUTO) 0.2 % (0-1); EOSINOPHILS # (AUTO) 0.2 X10'3 (0-0.9); HEMATOCRIT 37.4 % (42.0-52.0); HEMOGLOBIN 12.8 g/dl (14.0-17.9); LYMPHOCYTES # (AUTO) 1.1 X10'3 (1.1-4.8); LYMPHOCYTES % (AUTO) 7.1 % (21-51); MEAN CORPUSCULAR HEMOGLOBIN 33.9 PG (27.0-31.0); MEAN CORPUSCULAR HGB CONC 34.3 % (33.0-36.5); MEAN CORPUSCULAR VOLUME 98.8 FL (78-98); MEAN PLATELET VOLUME 7.3 FL (7.4-10.4); MONOCYTES # (AUTO) 0.8 X10'3 (0-0.9); MONOCYTES % (AUTO) 5.1 % (2-12); NEUTROPHILS # (AUTO) 13.3 X10'3 (1.8-7.7); NEUTROPHILS % (AUTO) 86.6 % (42-75); PLATELET COUNT 248 X10'3 (140-440); RED BLOOD COUNT 3.78 X10'6 (4.70-6.10); RED CELL DISTRIBUTION WIDTH 13.9 % (11.5-14.5); WHITE BLOOD COUNT 15.3 X10'3 (4.5-11.0)
[2018-09-08 07:01] LABS: ALANINE AMINOTRANSFERASE 34 U/L (12-78); ALBUMIN 2.8 G/DL (3.4-5.0); ALBUMIN/GLOBULIN RATIO 0.7 (1.1-1.5); ALKALINE PHOSPHATASE 51 IU/L (46-116); ANION GAP 8 (8-16); ASPARTATE AMINO TRANSFERASE 18 U/L (10-37); BILIRUBIN,TOTAL 0.4 MG/DL (0.1-1.0); BLOOD UREA NITROGEN 10 MG/DL (7-18); BUN/CREATININE RATIO 15.4 (5.4-32.0); CALCIUM 8.9 MG/DL (8.5-10.1); CHLORIDE 98 MMOL/L (99-107); CREATININE 0.65 MG/DL (0.60-1.10); GLUCOSE 114 MG/DL (70-104); MAGNESIUM 2.1 MG/DL (1.5-2.4); PHOSPHORUS 3.7 MG/DL (2.3-4.5); POTASSIUM 4.2 MMOL/L (3.5-5.1); SODIUM 133 MMOL/L (135-145); TOTAL CARBON DIOXIDE 26.6 MMOL/L (24-32); TOTAL PROTEIN 6.9 G/DL (6.4-8.2); eGFR > 90 ML/MIN
[2018-09-08 07:11] VITALS: BP 121/77
[2018-09-08] MEDS: multivitamins, therapeutics tablet PO SCH (07:45)
[2018-09-08] MEDS: folic acid 1mg tablet PO SCH (07:45)
[2018-09-08] MEDS: heparin, porcine 5000 units/ml vial SQ SCH ×2 (07:46→19:22)
[2018-09-08] MEDS: thiamine 100mg tablet PO SCH (07:46)
[2018-09-08] MEDS: docusate sod 100mg capsule PO SCH ×2 (07:46→19:22)
[2018-09-08] MEDS ORDERED: furosemide inj 100 MG in normal saline 100ml IV soln 90 ML IV SCH (10:15)
[2018-09-08 13:55] VITALS: BP 136/80
[2018-09-08 15:00] VITALS: BP 131/84
[2018-09-08 15:41] LABS: CLARITY,URINE CLEAR (Clear); COLOR,URINE YELLOW (Yellow); GLUCOSE, URINE NEGATIVE (Neg); KETONES,URINE TRACE mg/dl (Neg); LEUKOCYTE ESTERASE ,URINE NEGATIVE (Neg); NITRITES, URINE NEGATIVE (Neg); OCCULT BLOOD,URINE TRACE-LYSED (Neg); PROTEIN,URINE NEGATIVE (Neg); UROBILINOGEN,URINE 0.2 E.U/dL (0.2-1.0)
[2018-09-08 15:42] LABS: UA COLLECTION TYPE CLN CATCH MIDSTREAM
[2018-09-08 15:46] LABS: SODIUM,URINE RANDOM 52 MEQ/L
[2018-09-08 15:48] LABS: BACTERIA,URINE 2+ /HPF (Neg); MUCUS STRANDS FEW /LPF (Neg); RBC,URINE 0-2 /HPF (0-2); SQUAMOUS EPITHELIAL CELL,UR NONE SEEN /LPF (FEW)
[2018-09-08 16:01] LABS: OSMOLALITY UA 712 MOSM/K (50-1400)
[2018-09-08 18:00] VITALS: BP 147/84
[2018-09-08 22:00] VITALS: BP 130/70
[2018-09-09 02:00] VITALS: BP 122/83
[2018-09-09 06:00] VITALS: BP 115/70
[2018-09-09 06:43] LABS: BASOPHILS # (AUTO) 0.1 X10'3 (0-0.2); BASOPHILS % (AUTO) 0.6 % (0-1); EOSINOPHILS # (AUTO) 0.3 X10'3 (0-0.9); EOSINOPHILS % (AUTO) 2.9 % (0-6); HEMATOCRIT 36.8 % (42.0-52.0); HEMOGLOBIN 12.5 g/dl (14.0-17.9); LYMPHOCYTES # (AUTO) 1.2 X10'3 (1.1-4.8); LYMPHOCYTES % (AUTO) 10.8 % (21-51); MEAN CORPUSCULAR VOLUME 99.8 FL (78-98); MEAN PLATELET VOLUME 6.8 FL (7.4-10.4); MONOCYTES # (AUTO) 0.9 X10'3 (0-0.9); MONOCYTES % (AUTO) 7.9 % (2-12); NEUTROPHILS # (AUTO) 8.7 X10'3 (1.8-7.7); NEUTROPHILS % (AUTO) 77.8 % (42-75); PLATELET COUNT 290 X10'3 (140-440); RED BLOOD COUNT 3.69 X10'6 (4.70-6.10); RED CELL DISTRIBUTION WIDTH 13.7 % (11.5-14.5); WHITE BLOOD COUNT 11.2 X10'3 (4.5-11.0)
[2018-09-09 06:57] LABS: ALANINE AMINOTRANSFERASE 34 U/L (12-78); ALBUMIN 2.7 G/DL (3.4-5.0); ALBUMIN/GLOBULIN RATIO 0.6 (1.1-1.5); ALKALINE PHOSPHATASE 50 IU/L (46-116); ANION GAP 8 (8-16); ASPARTATE AMINO TRANSFERASE 18 U/L (10-37); BILIRUBIN,TOTAL 0.5 MG/DL (0.1-1.0); BLOOD UREA NITROGEN 11 MG/DL (7-18); BUN/CREATININE RATIO 15.5 (5.4-32.0); CALCIUM 9.1 MG/DL (8.5-10.1); CHLORIDE 99 MMOL/L (99-107); CREATININE 0.71 MG/DL (0.60-1.10); GLUCOSE 113 MG/DL (70-104); MAGNESIUM 2.1 MG/DL (1.5-2.4); PHOSPHORUS 4.2 MG/DL (2.3-4.5); SODIUM 134 MMOL/L (135-145); TOTAL CARBON DIOXIDE 27.2 MMOL/L (24-32); eGFR > 90 ML/MIN
[2018-09-09] MEDS: docusate sod 100mg capsule PO SCH ×2 (07:50→20:33)
[2018-09-09] MEDS: thiamine 100mg tablet PO SCH (07:50)
[2018-09-09] MEDS: folic acid 1mg tablet PO SCH (07:50)
[2018-09-09] MEDS: multivitamins, therapeutics tablet PO SCH (07:50)
[2018-09-09] MEDS: heparin, porcine 5000 units/ml vial SQ SCH ×2 (07:51→20:32)
[2018-09-09 11:00] VITALS: BP 122/77
[2018-09-09 15:00] VITALS: BP 137/83
[2018-09-09] MEDS: ciprofloxacin 250mg tablet PO SCH (16:13)
[2018-09-09 19:00] VITALS: BP 130/82
[2018-09-09 23:00] VITALS: BP 142/84
[2018-09-10 03:00] VITALS: BP 109/83
[2018-09-10 05:23] LABS: BASOPHILS # (AUTO) 0.1 X10'3 (0-0.2); BASOPHILS % (AUTO) 0.8 % (0-1); EOSINOPHILS # (AUTO) 0.2 X10'3 (0-0.9); EOSINOPHILS % (AUTO) 2.7 % (0-6); HEMATOCRIT 36.3 % (42.0-52.0); HEMOGLOBIN 12.5 g/dl (14.0-17.9); LYMPHOCYTES # (AUTO) 1.1 X10'3 (1.1-4.8); LYMPHOCYTES % (AUTO) 12.4 % (21-51); MEAN CORPUSCULAR HGB CONC 34.4 % (33.0-36.5); MEAN CORPUSCULAR VOLUME 98.8 FL (78-98); MONOCYTES # (AUTO) 0.8 X10'3 (0-0.9); MONOCYTES % (AUTO) 8.5 % (2-12); NEUTROPHILS # (AUTO) 6.9 X10'3 (1.8-7.7); NEUTROPHILS % (AUTO) 75.6 % (42-75); PLATELET COUNT 296 X10'3 (140-440); RED BLOOD COUNT 3.67 X10'6 (4.70-6.10); RED CELL DISTRIBUTION WIDTH 13.8 % (11.5-14.5); WHITE BLOOD COUNT 9.1 X10'3 (4.5-11.0)
[2018-09-10 05:38] LABS: ALANINE AMINOTRANSFERASE 34 U/L (12-78); ALBUMIN 2.7 G/DL (3.4-5.0); ALBUMIN/GLOBULIN RATIO 0.6 (1.1-1.5); ALKALINE PHOSPHATASE 48 IU/L (46-116); ANION GAP 9 (8-16); ASPARTATE AMINO TRANSFERASE 18 U/L (10-37); BILIRUBIN,TOTAL 0.4 MG/DL (0.1-1.0); BLOOD UREA NITROGEN 11 MG/DL (7-18); CALCIUM 8.9 MG/DL (8.5-10.1); CHLORIDE 100 MMOL/L (99-107); CREATININE 0.61 MG/DL (0.60-1.10); GLUCOSE 118 MG/DL (70-104); MAGNESIUM 2.1 MG/DL (1.5-2.4); PHOSPHORUS 3.8 MG/DL (2.3-4.5); SODIUM 135 MMOL/L (135-145); TOTAL CARBON DIOXIDE 25.9 MMOL/L (24-32); TOTAL PROTEIN 6.9 G/DL (6.4-8.2); eGFR > 90 ML/MIN
[2018-09-10 06:00] VITALS: BP 129/80
[2018-09-10] MEDS: folic acid 1mg tablet PO SCH (08:59)
[2018-09-10] MEDS: multivitamins, therapeutics tablet PO SCH (08:59)
[2018-09-10] MEDS: docusate sod 100mg capsule PO SCH (08:59)
[2018-09-10] MEDS: thiamine 100mg tablet PO SCH (08:59)
[2018-09-10] MEDS: heparin, porcine 5000 units/ml vial SQ SCH (09:00)
[2018-09-10] MEDS: ciprofloxacin 250mg tablet PO SCH (09:56)
[2018-09-10 11:00] VITALS: BP 137/83
[2018-09-10] MEDS ORDERED: thiamine tablet PO (12:52)
[2018-09-10] MEDS ORDERED: FOLI1TAB16 PO (12:52)
[2018-09-10] MEDS ORDERED: CIPR-230 PO (12:52)
[2018-09-10] MEDS ORDERED: CYAN100T12 PO (12:52)
[2018-09-10 15:00] VITALS: BP 150/87
== END 2018-09-10 17:05 | disposition home health service (06) | DRG 643 ==
LOC: ER 11:20 → ED HOLD 15:32 → ICU 2S 17:10 → PCU 3S 08-31 11:29
PROVIDERS: ADMIT Internal Medicine Critical Care Medicine
PROC: BW241ZZ Computerized Tomography (CT Scan) of Chest and Abdomen using Low Osmolar Contrast (ICD-10-PCS; principal; 2018-08-29)
PROC: BW251ZZ Computerized Tomography (CT Scan) of Chest, Abdomen and Pelvis using Low Osmolar Contrast (ICD-10-PCS; 2018-08-31)
DX: E22.2 Syndrome of inappropriate secretion of antidiuretic hormone (principal); G93.41 Metabolic encephalopathy; C78.02 Secondary malignant neoplasm of left lung; E78.00 Pure hypercholesterolemia, unspecified; E78.5 Hyperlipidemia, unspecified; E87.6 Hypokalemia; F32.9 Major depressive disorder, single episode, unspecified; G89.29 Other chronic pain; F10.229 Alcohol dependence with intoxication, unspecified; I10 Essential (primary) hypertension; J44.9 Chronic obstructive pulmonary disease, unspecified; K21.9 Gastro-esophageal reflux disease without esophagitis; Z60.2 Problems related to living alone; T50.2X5A Adverse effect of carbonic-anhydrase inhibitors, benzothiadiazides and other diuretics, initial encounter; Z79.899 Other long term (current) drug therapy; Z85.828 Personal history of other malignant neoplasm of skin; Z86.73 Personal history of transient ischemic attack (TIA), and cerebral infarction without residual deficits; Z87.891 Personal history of nicotine dependence; Y92.9 Unspecified place or not applicable
CPT/HCPCS: 36415; 70450; 70544; 70551; 71045; 71260; 74177; 80048; 80053; 80305; 80320; 81001; 82140; 82533; 82607; 83605; 83690; 83735; 83930; 83935; 84100; 84132; 84300; 84443; 84484; 85025; 85610; 85730; 87040; 87070; 87077; 87088; 87186; 93005; 96365; 96375; 97116; 97161; 97530; 99291; G0378; J1644; J1940; J2060; J2270; J3480; J7030; Q9963; Q9967

== ENCOUNTER 2018-10-06 13:38 | Emergency (ER) | payer MEDICARE ==
[~2018-10-06] VITALS: Ht 172.7 cm; Wt 79.5 kg
[~2018-10-06 13:38] MED LIST changes: +ALBU18HF2 INH; +CHLO25TA2 PO; +CYAN100T12 PO; -FLUT1DIS4 INH; +FOLI1TAB16 PO; -HYDR-4383 PO; -LISI-222 PO; +LISI-600 PO; -PANT-47 PO; +SIMV40TA PO; -THEO200T22 PO; +TIMO5DRO4 EACHEYE; +TRAM50TA2 PO; -ZOC40T PO; +thiamine tablet PO
[2018-10-06 13:42] VITALS: BP 120/80
[2018-10-06] MEDS ORDERED: CLIN150C2 PO (14:08)
== END 2018-10-06 14:27 | disposition home or self-care (01) ==
LOC: ER 13:39
DX: L73.9 Follicular disorder, unspecified (principal); E78.00 Pure hypercholesterolemia, unspecified; I10 Essential (primary) hypertension; J44.9 Chronic obstructive pulmonary disease, unspecified; K21.9 Gastro-esophageal reflux disease without esophagitis; G89.29 Other chronic pain; Z86.73 Personal history of transient ischemic attack (TIA), and cerebral infarction without residual deficits; Z98.890 Other specified postprocedural states; Z79.899 Other long term (current) drug therapy; Z60.2 Problems related to living alone
CPT/HCPCS: 99283